=== PATIENT | female | born 1990 | race Caucasian/White ===

== ENCOUNTER 2021-10-14 15:32 | Emergency (ER) | payer OTHER, SELFPAY ==
--- NOTE | 2021-10-14 16:03 | ED.SKABFB ---
HPI - Skin/Abscess/Foreign Bdy General Chief complaint: Skin/Abscess/Foreign Body Stated complaint: rash Time Seen by Provider: 10/14/21 15:55 History of Present Illness HPI narrative: Siria Mesa is a 31 yo female with no PMH comes with a rash on her abdomen and upper right thigh but are not on the rest of her torso or arms or legs that she thinks came from full trip over the weekend but she did not start to break out till yesterday. She has itchy circular rash but not linear. No rash on fingers or toes Related Data Allergies Allergy/AdvReac Type Severity Reaction Status Date / Time No Known Allergies Allergy Verified 10/14/21 16:06 Review of Systems Review of Systems: CONSTITUTIONAL: Denies fever, chills, sweats. EYES: Denies visual changes, redness, discharge. ENT: Denies rhinorrhea, congestion, sore throat, otalgia. CARDIOVASCULAR: Denies chest pain, palpitations, edema. RESPIRATORY: Denies dyspnea, wheezing, cough GASTROINTESTINAL: Denies abdominal pain, nausea, vomiting, diarrhea. GENITOURINARY: Denies dysuria, hematuria, abnormal discharge SKIN: Has red rash on abdomen and right upper thigh -small area NEUROLOGIC: Denies numbness, or focal weakness. PSYCHIATRIC: Denies anxiety or depression. [facility] Social History Social History (Updated 10/14/21 @ 16:07 by Rhonda Salinas CNP) Smoking status: Never smoker Alcohol intake: current Exam Narrative: GENERAL: This is a well-nourished, well-developed patient, in mild distress. HEAD: normocephalic, atraumatic. EYES: Sclera clear/white. Vision is grossly intact. EARS: External ears normal, au. Hearing grossly intact. NOSE: External nose normal without nasal discharge, nares without redness, no rhinorrhea. THROAT: Mucous membranes moist, NECK: Neck supple, non-tender CARDIOVASCULAR: Regular rate and rhythm without murmurs, gallops, or rubs. RESPIRATORY: Clear to auscultation. Breath sounds equal bilaterally. No wheezes, rales, or rhonchi. GASTROINTESTINAL: A not done SKIN: warm, intact with red papular rash on abdomen under breasts below umbilicus and small area on right upper anterior thigh. NEURO: awake, alert, and oriented to person, place and time. There were no obvious focal neurologic abnormalities. Steady gait EXTREMITIES: Normal range of motion. BACK: Nontender without deformity Course Course Emergency Course: [facility] of abdomen and right upper thigh Because of unknown origin of whether from float trip or other contact prescribed permethrin and Medrol Dosepak Discussed this with patient Level of Care: Express Care Visit Vital Signs Vital signs: Vital Signs Temperature 98.6 F 10/14/21 16:06 Pulse Rate 78 10/14/21 16:06 Respiratory Rate 18 10/14/21 16:06 Blood Pressure 108/64 10/14/21 16:06 Pulse Oximetry 98 10/14/21 16:06 Oxygen Delivery Room Air 10/14/21 16:06 Temperature 98.6 F 10/14/21 16:06 Pulse Rate 78 10/14/21 16:06 Respiratory Rate 18 10/14/21 16:06 Blood Pressure 108/64 10/14/21 16:06 Pulse Oximetry 98 10/14/21 16:06 Oxygen Delivery Room Air 10/14/21 16:06 MDM - Skin/Abscess/Foreign Bdy Differential Diagnosis Differential diagnosis: Likely abscess of skin or subcutaneous tissue, urticaria, eczema, insect bites, contact dermatitis and other Critical Care Time Critical Care Time Critical Care Time: No Discharge Plan Discharge Clinical Impression: Insect bites Qualifiers: Encounter type: initial encounter Site of insect bite: abdominal wall Qualified Code(s): S30.861A - Insect bite (nonvenomous) of abdominal wall, initial encounter Patient Disposition: Home, Self-Care Condition: Stable Instructions: Dermatitis (ED) Additional Instructions: Use permethrin by directions Take Medrol dose pack which is a steroid by following the directions on the blister pack Prescriptions: New Lice Treatment (permethrin) 1 % liquid 60 ml topica
[2021-10-14 16:06] VITALS: BP 108/64; PULSE 78; RESP 18; TEMP 37; O2SAT 98
== END 2021-10-14 16:14 | disposition home or self-care (01) ==
PROVIDERS: Emergency Provider Nurse Practitioner
DX: S30.861A Insect bite (nonvenomous) of abdominal wall, initial encounter (principal); W57.XXXA Bitten or stung by nonvenomous insect and other nonvenomous arthropods, initial encounter
CPT/HCPCS: 99203; G0463